=== PATIENT | male | born 1970 | race Caucasian/White ===

== ENCOUNTER 2023-05-25 08:06 | Emergency (ER) | payer BC, SELFPAY ==
[2023-05-25 08:19] VITALS: BP 122/87; PULSE 79; RESP 16; TEMP 37.3; O2SAT 99
--- NOTE | 2023-05-25 08:20 | ED.SKABFB ---
HPI - Skin/Abscess/Foreign Bdy General Chief complaint: Skin/Abscess/Foreign Body Stated complaint: rash left shoulder/chest Source: patient Mode of arrival: ambulatory Limitations: no limitations History of Present Illness HPI narrative: 52 y/o male presented for c/o rash to left upper chest for about 4 days. States the rash started as small red bumps. Endorses itching and mild pain. Also reports sites are oozing. States the rash is spreading across the back and chest and has a few scattered red bumps to the forearms and scalp. Using poison quinn soap and antibiotic ointment. Denies lip, tongue, or throat swelling, shortness of breath or wheezing. Denies changes to soap, detergent, lotion, or any other exposures. States he has cut the grass, but nothing out of the ordinary. Denies travel. No one else in the house or any contacts with similar symptoms. Related Data Allergies Allergy/AdvReac Type Severity Reaction Status Date / Time No Known Allergies Allergy Unknown Verified 05/25/23 08:19 Review of Systems Review of Systems: CONSTITUTIONAL: Denies body aches, fever, chills, or sweats. EYES: Denies visual changes, redness, or discharge. ENT: Denies rhinorrhea, congestion CARDIOVASCULAR: Denies chest pain, palpitations, or edema. RESPIRATORY: Denies cough or dyspnea. GASTROINTESTINAL: Denies abdominal pain, nausea, vomiting, or diarrhea. SKIN: reports rash to chest and back MUSCULOSKELETAL: Denies back pain, joint pain, or myalgia. NEUROLOGIC: Denies headache, numbness, tingling, or weakness. [facility] Past Medical History Medical History (Updated 05/25/23 @ 09:03 by Florina Chun, ROSIBEL) No pertinent past medical history Comments At time of signature, I have reviewed and agree with nursing past medical, surgical, social and family history unless otherwise noted. Please see nursing chart for further information. There is no relevant family history pertinent to the presenting complaint Exam Narrative: GENERAL: Well-appearing HEAD: Normocephalic, atraumatic. EYES: conjunctivae clear, and EOMI. ENT: Mucous membranes moist. Oropharynx without edema, erythema or lesions. NECK: Supple. No lymphadenopathy CHEST: Clear to auscultation. HEART: Regular rate and rhythm. SKIN: Warm, dry. Left distal/anterior deltoid with cluster of vesicles on erythematous base approx 4cm diameter; scattered 2mm pustules to back and forearms; scattered indurated pustular and ulcerated areas x5 over left upper chest approx 1cmx0.5cm with scant active drainage, nontender. NEURO: Alert and oriented x3. Chest: Chest/axillae images: 1. site of clustered vesicles on erythematous base 2. scattered ulcerated pustular areas Course Course Emergency Course: Patient is aware of diagnosis, understands and agrees to treatment plan. Anticipatory guidance given. Patient agrees to follow-up as directed and is aware of reasons to seek care at the emergency department. Portions of this record may have been created with voice recognition software Level of Care: Express Care Visit Vital Signs Vital signs: Vital Signs Temperature 99.2 F 05/25/23 08:19 Pulse Rate 79 05/25/23 08:19 Respiratory Rate 16 05/25/23 08:19 Blood Pressure 122/87 05/25/23 08:19 Pulse Oximetry 99 05/25/23 08:19 Oxygen Delivery Room Air 05/25/23 08:19 Temperature 99.2 F 05/25/23 08:19 Pulse Rate 79 05/25/23 08:19 Respiratory Rate 16 05/25/23 08:19 Blood Pressure 122/87 05/25/23 08:19 Pulse Oximetry 99 05/25/23 08:19 Oxygen Delivery Room Air 05/25/23 08:19 Reviewed MDM - Skin/Abscess/Foreign Bdy MDM Narrative Medical decision making narrative: Discussed physical exam findings. Patient has clustered vesicles on erythematous base c/w zoster, however the sites are minimally tender and the scattered ulcerated areas across chest and spreading pustules appear more c/w infected contact dermatitis. He denies any known
== END 2023-05-25 09:03 | disposition home or self-care (01) ==
PROVIDERS: Emergency Provider Nurse Practitioner Family; PCP Emergency Medicine
DX: L30.9 Dermatitis, unspecified (principal)
CPT/HCPCS: 99213; G0463